=== PATIENT | male | born 1960 | race Caucasian/White ===

== ENCOUNTER 2017-07-05 20:13 | Emergency (ER) | payer OTHER ==
[2017-07-05] MEDS ORDERED: FENTANYL CITRATE INJ/PF 100 MCG/2 ML AMPUL IV ONE (21:34)
[2017-07-05] MEDS ORDERED: ONDANSETRON HCL INJ/PF 4 MG/2 ML SDV IV ONE (21:34)
[2017-07-05 21:51] LABS: ABSOLUTE BASOPHILS # (AUTO) 0.1 10^3/uL (0.0-0.2); ABSOLUTE EOSINOPHILS # (AUTO) 0.1 10^3/uL (0.0-0.6); ABSOLUTE LYMPHOCYTES (AUTO) 1.5 10^3/uL (0.5-4.7); ABSOLUTE MONOCYTES (AUTO) 0.6 10^3/uL (0.1-1.4); ABSOLUTE NEUT (AUTO) 6.6 10^3/uL (1.7-8.2); BASOPHILS % (AUTO) 0.6 % (0-2); EOSINOPHILS % (AUTO) 1.5 % (0-6); HEMATOCRIT 43.6 % (37.9-51.0); HEMOGLOBIN 14.9 g/dL (13.5-17.0); LYMPHOCYTES % (AUTO) 16.7 % (13-45); MEAN CORPUSCULAR HEMOGLOBIN 33.5 pg (27.0-33.4); MEAN CORPUSCULAR HGB CONC 34.1 g/dL (32.0-36.0); MEAN CORPUSCULAR VOLUME 98 fl (80-97); MONOCYTES % (AUTO) 6.5 % (3-13); PLATELET COUNT 190 10^3/uL (150-450); RED BLOOD COUNT 4.44 10^6/uL (4.35-5.55); RED CELL DISTRIBUTION WIDTH 12.9 % (11.5-14.0); SEGMENTED NEUTROPHILS % (AUTO) 74.7 % (42-78); TOTAL CELLS COUNTED % (AUTO) 100 %; WHITE BLOOD COUNT 8.9 10^3/uL (4.0-10.5)
[2017-07-05 21:57] LABS: INTERNATIONAL RATION (INR) 0.99; PROTHROMBIN TIME 13.8 SEC (11.4-15.4)
[2017-07-05 21:58] LABS: PARTIAL THROMBOPLASTIN TIME 30.8 SEC (23.5-35.8)
--- NOTE | 2017-07-05 22:06 | ER Document Report ---
ED General - General Chief Complaint: Vomiting Stated Complaint: THROWING UP BLOOD Time Seen by Provider: 07/05/17 21:22 Notes: Patient is a 56-year-old male that comes emergency department for chief complaint of left inguinal hernia pain, he states the pain started after the hernia came out and he could not push it back in, he states he vomited, he states he pushed it back and afterwards, however it came back out again and vomited again. He states his vomit looks "dark". He is unsure of blood in the vomit. He denies blood in the stool or black stools. He is not on a blood thinner. He denies any history of GI bleed. He denies any alcohol use. He does smoke. He was seen by [facility] and he is supposed to be having surgery on the hernia. TRAVEL OUTSIDE OF THE [place] IN LAST 30 DAYS: No - Related Data Allergies/Adverse Reactions: No Known Allergies Allergy (Verified 04/20/17 12:40) Past Medical History - General Information source: Patient - Social History Smoking Status: Current Every Day Smoker Smoking Education Provided: Yes - <3 min Frequency of alcohol use: None Drug Abuse: None Lives with: Family Family History: Reviewed & Not Pertinent Renal/ Medical History: Denies: Hx Peritoneal Dialysis - Immunizations Hx Diphtheria, Pertussis, Tetanus Vaccination: Yes Review of Systems - Review of Systems Constitutional: No symptoms reported EENT: No symptoms reported Cardiovascular: No symptoms reported Respiratory: No symptoms reported Gastrointestinal: See HPI Genitourinary: No symptoms reported Male Genitourinary: No symptoms reported Musculoskeletal: No symptoms reported Skin: No symptoms reported Hematologic/Lymphatic: No symptoms reported Neurological/Psychological: No symptoms reported Physical Exam - Vital signs Vitals: Temp Pulse Resp BP Pulse Ox 97.7 F 61 14 157/86 H 97 07/05/17 20:31 07/05/17 20:31 07/05/17 20:31 07/05/17 20:31 07/05/17 20:31 Interpretation: Normal - General General appearance: Alert, Anxious In distress: Mild - HEENT Head: Normocephalic, Atraumatic Eyes: Normal Conjunctiva: Normal Extraocular movements intact: Yes Eyelashes: Normal Pupils: PERRL Mouth/Lips: Normal Mucous membranes: Normal Pharynx: Normal Neck: Normal - Respiratory Respiratory status: No respiratory distress Chest status: Nontender Breath sounds: Normal. No: Decreased air movement, Wheezing Chest palpation: Normal - Cardiovascular Rhythm: Regular Heart sounds: Normal auscultation Murmur: No - Abdominal Inspection: Normal Distension: No distension Tenderness: Tender - Patient with minimal generalized diffuse tenderness of the abdomen except for the left inguinal area where there is an obvious protruding hernia. There is tenderness over the hernia but the area is still soft, no hardness or erythema noted over the area. Otherwise unremarkable abdominal exam. - Back Back: Normal, Nontender - Extremities General upper extremity: Normal inspection, Nontender, Normal color, Normal ROM , Normal temperature General lower extremity: Normal inspection, Nontender, Normal color, Normal ROM , Normal temperature, Normal weight bearing. No: Taj's sign - Neurological Neuro grossly intact: Yes Cognition: Normal Orientation: AAOx4 Rupert Coma Scale Eye Opening: Spontaneous Gisell Coma Scale Verbal: Oriented Gisell Coma Scale Motor: Obeys Commands Rupert Coma Scale Total: 15 Speech: Normal Motor strength normal: LUE, RUE, LLE, RLE Sensory: Normal - Psychological Associated symptoms: Anxious - Skin Skin Temperature: Warm Skin Moisture: Dry Skin Color: Normal Course - Re-evaluation Re-evalutation: Patient stating he had dark vomit yesterday and today, however he has no blood in his stool, no vomiting here, discussed with patient and now he thinks he did not have blood in his vomit. He has no upper abdominal pain, no history of alcohol abuse, no history of peptic ulcers, no blood thinners, no NSAID use, vomiting blood does seem unlikely. CBC, chemistry, lactic acid are unremarkable. Patient with painful inguinal hernia on the left side that is not reducing, patient given 75 mcg of fentanyl along with Zofran, he had good pain relief, I was able to easily reduce the hernia at this point. Patient was monitored for about an hour and did not have return of the hernia. I discussed surgical consultation at this point, patient declines, patient states he is ready to go home and that he will be careful, wear his belt/binder that he was given, and perform his planned surgical follow-up. I discussed return precautions in detail. Patient and state understanding and agreement. Stable at time of discharge. - Vital Signs Vital signs: Temp Pulse Resp BP Pulse Ox 97.7 F 61 17 108/75 95 07/05/17 20:31 07/05/17 20:31 07/05/17 23:01 07/05/17 23:01 07/05/17 23:01 - Laboratory Result Diagrams: 07/05/17 21:35 07/05/17 21:35 Laboratory results interpreted by me: 07/05/17 07/05/17 21:35 21:35 MCV 98 H MCH 33.5 H Carbon Dioxide 32 H Creatinine 1.26 H Est GFR (Non-Af Amer) 59 L Glucose 123 H Discharge - Discharge Clinical Impression: Left inguinal hernia, Reducible left inguinal hernia Condition: Stable Disposition: HOME, SELF-CARE Additional Instructions: Your hernia was reduced tonight. Wear the belt, avoid smoking, holding area in the event of coughing or sneezing , if the hernia comes out press it back in gently. Please follow-up on Friday as planned for additional management to be performed and for follow-up surgery. Return if you worsen including if the area comes out and will not go back again , you begin vomiting, you develop a fever of 100.4 greater, or for any other concerning symptoms.
[2017-07-05 22:17] LABS: ALANINE AMINOTRANSFERASE 30 U/L (21-72); ALBUMIN 4.6 g/dL (3.5-5.0); ALKALINE PHOSPHATASE 52 U/L (38-126); ANION GAP 10 (5-19); ASPARTATE AMINO TRANSFERASE 29 U/L (17-59); BILIRUBIN,DIRECT 0.2 mg/dL (0.0-0.4); BILIRUBIN,TOTAL 0.4 mg/dL (0.2-1.3); BLOOD UREA NITROGEN 20 mg/dL (7-20); CALCIUM 10.2 mg/dL (8.4-10.2); CARBON DIOXIDE 32 mmol/L (22-30); CHLORIDE 102 mmol/L (98-107); GLUCOSE 123 mg/dL (75-110); LIPASE 88.1 U/L (23-300); SODIUM 143.5 mmol/L (137-145); TOTAL PROTEIN 7.1 g/dL (6.3-8.2)
[2017-07-05 23:11] VITALS: BP 108/75
== END 2017-07-05 23:18 | disposition home or self-care (01) ==
LOC: ER 20:13
DX: K40.90 Unilateral inguinal hernia, without obstruction or gangrene, not specified as recurrent (principal); R11.10 Vomiting, unspecified; F17.200 Nicotine dependence, unspecified, uncomplicated
CPT/HCPCS: 99284; 96374; 96375; 86900; 86901; 36415; 86850; 83605; 83690; 85025; 85610; 85730; 82272; 80053; J3010; J2405

== ENCOUNTER 2017-07-17 07:27 | Day surgery (SDC) | payer OTHER ==
[2017-07-17] MEDS ORDERED: NALOXONE HCL INJ/PF 0.4 MG/1 ML SDV ONE (07:53)
[2017-07-17] MEDS ORDERED: GLYCOPYRROLATE INJ 0.4 MG/2 ML VIAL ONE (07:53)
[2017-07-17] MEDS ORDERED: ONDANSETRON HCL INJ/PF 4 MG/2 ML SDV ONE (07:53)
[2017-07-17] MEDS ORDERED: EPINEPHRINE INJ 1 MG/10 ML DISP.SYRIN ONE (07:54)
[2017-07-17] MEDS ORDERED: MIDAZOLAM 2 MG/2 ML INJ ONE (07:54)
[2017-07-17] MEDS ORDERED: FENTANYL CITRATE INJ/PF 100 MCG/2 ML AMPUL ONE (07:54)
[2017-07-17] MEDS ORDERED: GLUCAGON,HUMAN RECOMB 1 MG INJ ONE (07:54)
[2017-07-17] MEDS ORDERED: FLUMAZENIL INJ 0.5 MG/5 ML VIAL ONE (07:54)
[2017-07-17] MEDS: MIDAZOLAM 2 MG/2 ML INJ ONE ×2 (08:09→08:18)
--- NOTE | 2017-07-17 10:04 | OPERATIVE REPORT E ---
Operative Report NAME: ASHLYN BOWENS : 1960 AGE: 56Y DATE OF SURGERY: 07/17/2017 ROOM: PREOPERATIVE DIAGNOSES: 1. Left inguinal hernia. 2. Need for screening colonoscopy. POSTOPERATIVE DIAGNOSES: 1. Left inguinal hernia. 2. Need for screening colonoscopy. 3. Multiple colon and rectal polyps. PROCEDURES: 1. Total colonoscopy to cecum with photo documentation. 2. Hot snare polypectomy of 2 pedunculated polyps at 18 cm. 3. Hot snare polypectomy of rectal polyp. 4. Cold forceps biopsy of rectal polyp. SURGEON: TOMÁS TOBIN M.D. ANESTHESIA: Conscious sedation. COMPLICATIONS: None. ESTIMATED BLOOD LOSS: None. DRAINS: None. TISSUE REMOVED OR ALTERED: Multiple polyps. SUMMARY OF PROCEDURE: The patient was brought from the endoscopy preop area to the endoscopy suite were conscious sedation was induced. The patient was placed in the left lateral decubitus position. Surgical plan and surgical timeout were conducted. Rectal exam was performed. Sphincter tone was excellent. Posterior surface of the prostate gland was smooth, but firm. It was slightly enlarged. A flexible adult colonoscope was advanced through the anorectal canal all the way to the cecum. This was an excellent study on a well-prepped bowel. Visualization of the ileocecal junction, transillumination of anterior abdominal wall confirmed cecal intubation. The scope was withdrawn the length of the colon checking the mucosa carefully. There was no evidence of bleeding, stricture, or diverticuloses. In the rectosigmoid junction approximately 18 cm from the anal verge were 2 pedunculated polyps approximately 4-5 mm in diameter. They were adjacent to each other. They were photographed, and both removed with a hot snare device on medium heat strength with both specimens retrieved. Cautery sites were inspected and felt to be in satisfactory condition. Scope was brought back through the anorectal canal. Approximately 10-11 cm from the anal verge was a smaller pedunculated polyp, which was removed with the hot snare device. At the time of this dictation, its retrieval status was undetermined. There were also 2-3 small hyperplastic sessile polyps of the anorectal canal at approximately 8 cm from the anal verge, which were removed with the cold forceps device. Bleeding was negligible. Scope was brought back through the anorectal canal. The patient tolerated the procedure well. Per surveillance guidelines, pending the results of the pathology report, patient will be an appropriate candidate for followup colonoscopy in 18 months to 2 years, to be determined by Dr. Tobin. DICTATING PHYSICIAN: TOMÁS TOBIN M.D. [id number] PHY#: [id number] ID: [id number] JOB#: [id number] ACCT: [id number] cc:TOMÁS TOBIN M.D. >
[2017-07-17 10:34] VITALS: BP 158/85
== END 2017-07-17 10:15 | disposition home or self-care (01) ==
LOC: END 07:27
PROVIDERS: ATTEND Surgery
PROC: 0DBP8ZX Excision of Rectum, Via Natural or Artificial Opening Endoscopic, Diagnostic (ICD-10-PCS; principal; 2017-07-17 08:30)
DX: Z12.11 Encounter for screening for malignant neoplasm of colon (principal); D12.8 Benign neoplasm of rectum; K63.5 Polyp of colon; K40.90 Unilateral inguinal hernia, without obstruction or gangrene, not specified as recurrent; N40.0 Benign prostatic hyperplasia without lower urinary tract symptoms; J45.909 Unspecified asthma, uncomplicated; F17.210 Nicotine dependence, cigarettes, uncomplicated; Z86.73 Personal history of transient ischemic attack (TIA), and cerebral infarction without residual deficits; Z88.5 Allergy status to narcotic agent
CPT/HCPCS: 45380; 45385; 88305 ×2; J2250; J3010; J0171; J1610; J2310; J2405; J3490

== ENCOUNTER 2017-08-20 11:45 | Day surgery (SDC) | payer OTHER ==
[2017-08-08 11:12] LABS: APPEARANCE,URINE CLEAR; BILIRUBIN,URINE NEGATIVE (NEGATIVE); COLOR,URINE YELLOW; GLUCOSE, URINE NEGATIVE (NEGATIVE); KETONES,URINE NEGATIVE (NEGATIVE); LEUKOCYTE ESTERASE,URINE NEGATIVE (NEGATIVE); NITRITE,URINE NEGATIVE (NEGATIVE); PROTEIN,URINE NEGATIVE (NEGATIVE); URINE SPECIFIC GRAVITY 1.027; UROBILINOGEN,URINE NEGATIVE mg/dL (<2.0)
[2017-08-08 11:25] LABS: HEMATOCRIT 41.8 % (37.9-51.0); HEMOGLOBIN 14.3 g/dL (13.5-17.0); MEAN CORPUSCULAR HEMOGLOBIN 33.2 pg (27.0-33.4); MEAN CORPUSCULAR HGB CONC 34.2 g/dL (32.0-36.0); MEAN CORPUSCULAR VOLUME 97 fl (80-97); PLATELET COUNT 174 10^3/uL (150-450); RED CELL DISTRIBUTION WIDTH 12.7 % (11.5-14.0); WHITE BLOOD COUNT 4.8 10^3/uL (4.0-10.5)
[2017-08-08 11:52] LABS: ANION GAP 8 (5-19); BLOOD UREA NITROGEN 21 mg/dL (7-20); CALCIUM 9.2 mg/dL (8.4-10.2); CARBON DIOXIDE 31 mmol/L (22-30); CHLORIDE 106 mmol/L (98-107); GLUCOSE 100 mg/dL (75-110); POTASSIUM 4.6 mmol/L (3.6-5.0); SODIUM 145.2 mmol/L (137-145)
--- NOTE | 2017-08-08 13:10 | EKG REPORT ---
SEVERITY:- OTHERWISE NORMAL ECG - SINUS BRADYCARDIA MINIMAL ST ELEVATION, ANTERIOR LEADS : Confirmed by: Ramakrishna Bella MD 08-Aug-2017 13:09:55
[~2017-08-20 11:45] MED LIST: ACETAMINOPHEN 325 MG TABLET PO PRN; CEFAZOLIN 1 GM/D5W RTU 1 GM/50 ML RTUPB IV PRN; DEXAMETHASONE SOD PHOSPHATE INJ 4 MG/1 ML VIAL ONE; KETOROLAC TROMETHAMINE 60 MG/2 ML SDV ONE; LACTATED RINGERS 1000 ML IV PRN; LIDOCAINE 0.5% INJ-PF (5 MG/ML) 50 ML SDV SUBCUT PRN; LIDOCAINE 2% INJ-PF (20 MG/ML) 2 ML AMPUL ONE; METOCLOPRAMIDE HCL INJ/PF 10 MG/2 ML SDV ONE; ONDANSETRON HCL INJ/PF 4 MG/2 ML SDV ONE; SUCCINYLCHOLINE CHLORIDE INJ 200 MG/10 ML VIAL ONE
[2017-08-20] MEDS ORDERED: ALBUTEROL SULFATE 0.083% NEB 2.5 MG/3 ML AMPUL NEB ONE (13:22)
[2017-08-20] MEDS ORDERED: MIDAZOLAM 2 MG/2 ML INJ ONE (14:29)
[2017-08-20] MEDS ORDERED: FENTANYL CITRATE INJ/PF 100 MCG/2 ML AMPUL ONE ×2 (14:29)
[2017-08-20] MEDS ORDERED: ACETAMINOPHEN 100 ML IV ONE (14:30)
[2017-08-20] MEDS ORDERED: PROPOFOL INJ 200 MG/20 ML VIAL IV ONE (14:30)
[2017-08-20] MEDS ORDERED: BUPIVACAINE HCL 0.25 % INJ/PF (2.5 MG/1 ML) 30 ML VIAL ONE (15:04)
[2017-08-20] MEDS ORDERED: BUPIVACAINE INJ/PF LIPOSOME/PF 266 MG/20 ML SDV ONE (15:04)
--- NOTE | 2017-08-20 15:31 | Discharge Summary ---
Discharge Summary (SDC) - Discharge Final Diagnosis: inguinal hernia Date of Surgery: 08/20/17 Discharge Date: 08/20/17 Condition: Stable Treatment or Instructions: [facility] [address] [place] [id number] Discharge Instructions: Open Abdominal Procedures (Hernia, Bowel Surgery) 1.General Information: a. DO NOT DRIVE a car or operative machinery for 1-2 weeks or as long as taking Narcotic pain medication. b. DO NOT consume alcohol, tranquilizers, sleeping medication, or any non- prescribed medication for 24 hours unless approved by your doctor or as long as taking pain medication. c. DO NOT make important decisions or sign any important papers for the first 24 hours after surgery. d. When discharged home the same day as surgery have a responsible person with you the first night. 2.Activity Restriction: _8 weeks; a. Avoid heavy lifting (> 10-15 lbs), straining abdominal muscles and sports, mowing lawn, vacuum glass cleaner and bending over a lot. b. Walking is important to avoid blood clots in the legs and deep breathing can prevent pneumonia. c. If it fine to go for walks, up and down steps, and ride in a car. 3.Treatment: a. You may remove dressing or Band-Aids the day after surgery and shower then daily is fine, but you should not bathe in a tub or go swimming for 2 weeks. b. If you have paper strips (steri strips) on the skin, do not remove them as they will fall off in the coming weeks. Pat them dry after your shower. Sutures beneath the paper strips dissolve. If you have skin sutures or metal larry they will be removed on your follow up visit. They may also get wet with a shower. c. Do not use oils, powders, or lotion on your incision. 4.Medications: a. You may take prescription tablets for pain if needed, one every 6 hours (_ Toradol____). c. You may resume all normal medications unless a change is specified by your doctors. d. Antibiotic Therapy if needed ( NONE) ___ 5.Diet: a. If going home the same day as surgery start with clear liquids, and if you do well then advance to normal foods low inf fat and protein. Smaller portion size may be edmonds the first night. b. When discharged after hospital stay you may resume a normal diet. 6.Notify Physician If: a. Pain is not relieved by pain medication b. Persistent nausea and vomiting c. Chills, fever (above 101) d. Persistent bleeding or swelling at the operative site e. Unable to urinate for 6-8 hours f. Increased redness, drainage, or foul smelling discharge from incision 7. Follow Up Care: a. Please call our office to schedule an appointment with your doctor for 2 weeks. In the event of any postoperative problems or questions you may call our office during business hours or the On-Call surgeon through the shellfish meat separator operator at [facility]. [facility] [phone] [facility] [phone] (Ask for the surgeon promotional demonstrator) b. I understand the instructions for my postoperative care as described above and a copy has been given to me. _ Witness Patient/Significant Other Date Prescriptions: Ketorolac Tromethamine [Toradol 10 mg Tablet] 10 mg PO Q6HP PRN #20 tablet PRN Reason: Discharge Diet: As Tolerated Discharge Activity: No Lifting Over 10 Pounds, No Lifting/Push/Pulling, Walk Frequently Report the Following to Your Physician Immediately: Nausea, Vomiting, Increase in Pain, Fever over 101 Degrees, Unusual Bleeding, Redness, Drainage-Foul Smelling
[2017-08-20] MEDS ORDERED: ONDANSETRON HCL INJ/PF 4 MG/2 ML SDV IV PRN ×2 (16:07→17:23)
[2017-08-20] MEDS ORDERED: FENTANYL CITRATE INJ/PF 100 MCG/2 ML AMPUL IV PRN ×3 (16:07)
[2017-08-20] MEDS ORDERED: DIPHENHYDRAMINE HCL 50 MG/ML VIAL IV PRN (16:07)
[2017-08-20] MEDS ORDERED: MEPERIDINE HCL/PF INJ 25 MG/1 ML DISP.SYRIN IV PRN (16:07)
[2017-08-20] MEDS ORDERED: PROMETHAZINE HCL INJ 25 MG/1 ML VIAL IV PRN ×2 (16:07)
[2017-08-20] MEDS ORDERED: OXYCODONE-ACETAMINOPHEN 5-325 MG TABLET PO PRN (17:23)
[2017-08-20] MEDS ORDERED: KETOROLAC TROMETHAMINE 10 MG TABLET PO PRN (17:39)
--- NOTE | 2017-08-20 18:03 | OPERATIVE REPORT E ---
Operative Report NAME: ASHLYN BOWENS : 1960 AGE: 56Y DATE OF SURGERY: 08/20/2017 ROOM: PREOPERATIVE DIAGNOSIS: LEFT INGUINAL HERNIA, NONINCARCERATED. POSTOPERATIVE DIAGNOSIS: LEFT INGUINAL HERNIA, NONINCARCERATED, INDIRECT, WITH LIPOMA OF THE CORD. OPERATIONS: 1. Left inguinal exploration with left inguinal herniorrhaphy with medium-sized Bard plug and overlay mesh repair. 2. Excision of cord lipoma. SURGEON: TOMÁS TOBIN M.D. ANESTHESIA: General via endotracheal tube. COMPLICATIONS: None. FINDINGS: See below. ESTIMATED BLOOD LOSS: Scant. DRAINS: None. TISSUE REMOVED: Cord lipoma and portion of left inguinal hernia sac. PROCEDURE: Patient was taken from the preop holding area to the main operating room, where general anesthesia was induced. Left inguinal area, which had been previously marked and clipped, was prepped and draped in sterile fashion. Surgical plan and surgical timeout were conducted. Skin was anesthetized with 0.25% Marcaine. A standard left inguinal herniorrhaphy incision was made with a #10 blade over the left inguinal canal. Subcutaneous tissue, Jessee's fascia divided with electrocautery. External oblique aponeurosis opened along the direction of its fibers. The ilioinguinal nerve was identified and preserved throughout the dissection. It appeared to have a branch point midway along the inguinal canal. The contents of the inguinal canal were interrogated and elevated out of the canal. Carefully examining the area, there was marked scar tissue and fibrosis. Nonetheless, we were able to get around the cord structures satisfactorily. The contents within the Napoleon drain were now carefully examined. These consisted of a moderate-sized cord lipoma, and a moderate-sized left indirect inguinal hernia sac. Cord lipoma and sac were dissected free of all surrounding structures, careful to preserve the blood vessels along with the spermatic cord. The lipoma was amputated at its base as it emanated from the retroperitoneum and the stump oversewed with a 2-0 Vicryl suture. Cord lipoma was sent to pathology. Hernia sac was now approximately 5 inches in length. It was opened up and found to have fibrotic rim. There were no contents within the hernia sac. It was ligated at its base with a 2-0 Vicryl suture, amputated and the stump allowed to retract into the retroperitoneal tissues. We brought onto the field a medium-sized Bard plug and overlay mesh prosthesis. Of note, the inguinal floor medially was weakened, but grossly intact without herniation. Therefore, I took the medium-sized polypropylene mesh and inserted it lateral to the cord structures emanating from the retroperitoneum. This plug was secured to conjoined tendon and Poupart's ligament in 4 places with 0 PDS suture. The overlay mesh was now trimmed to the appropriate configuration using 6 stitches secured to the pubic tubercle, conjoined tendon and Poupart's ligament. The leads of the mesh were allowed to cross over the plug prosthesis lateral to the cord structures. At this point, inspection of the new internal ring revealed the cord structures to be without undue tension. We felt the operation was complete. The left testicle was confirmed to be in the left hemiscrotum. External oblique aponeurosis, Jessee's fascia and skin closed with 2-0 and 3-0 Vicryl respectively. Skin closed with Dermabond skin glue and surrounding subcutaneous tissues anesthetized with full-strength Exparel 20 mL. Patient tolerated the procedure well, extubated, taken to recovery in stable condition. SUKI El assisted with retracting tissue, closing the incisions and instituting a local anesthetic. DICTATING PHYSICIAN: TOMÁS TOBIN M.D. [id number] GEORGE#: [id number] ID: [id number] JOB#: [id number] ACCT: [id number] cc:TOMÁS TOBIN M.D. >
[2017-08-20 19:30] VITALS: BP 117/84
== END 2017-08-20 19:35 | disposition home or self-care (01) ==
LOC: OROUT 11:45
PROVIDERS: ATTEND Surgery
PROC: 0YU60JZ Supplement Left Inguinal Region with Synthetic Substitute, Open Approach (ICD-10-PCS; principal; 2017-08-20 14:15)
DX: K40.90 Unilateral inguinal hernia, without obstruction or gangrene, not specified as recurrent (principal); D17.6 Benign lipomatous neoplasm of spermatic cord; F12.90 Cannabis use, unspecified, uncomplicated; J45.909 Unspecified asthma, uncomplicated; F17.210 Nicotine dependence, cigarettes, uncomplicated; Z88.5 Allergy status to narcotic agent; Z86.73 Personal history of transient ischemic attack (TIA), and cerebral infarction without residual deficits
CPT/HCPCS: 93005; 36415; 85027; 80048; 81001; 88302 ×2; 93010; 49505; C1781; J2250; J0690; J1100; J1885; J3010; J2765; J0330; J2405; J2704; J0131; C9290; J3490; 830